=== PATIENT | male | born 1940 | race Caucasian/White ===

== ENCOUNTER 2018-04-21 21:40 | Inpatient (IN) | payer OTHER ==
[2018-04-21] MEDS: IODIXANOL LOCM 100 ML BTL (22:08)
[2018-04-21] MEDS: SOD CHLORIDE 0.9% 100 ML (22:08)
[2018-04-21 22:11] LABS: ABNORMAL IP MESSAGE 1; MEAN CORPUSCULAR HGB CONC 29.5 g/dl (32.0-37.0); NUCLEATED RED BLOOD CELLS% 0.6 /100WBC (0.0-0.0); PLATELET COUNT 274 10^3/UL (140-415); POSITIVE DIFF @See below; RED BLOOD COUNT 4.49 10^6/ul (4.70-6.10); RED CELL DISTRIBUTION WIDTH 14.2 % (11.5-14.5)
[2018-04-21 22:11] LABS: WHITE BLOOD COUNT 11.7 10^3/ul (4.8-10.8)
[2018-04-21 22:15] LABS: ADD MAN DIFF? YES
[2018-04-21 22:18] LABS: ALANINE AMINOTRANSFERASE 24 IU/L (13-69); ALBUMIN 4.4 g/dl (3.3-4.9); ALBUMIN/GLOBULIN RATIO 1.29; ALKALINE PHOSPHATASE 129 IU/L (42-121); ANION GAP 25 (8-16); ASPARTATE AMINO TRANSFERASE 30 IU/L (15-46); BILIRUBIN,INDIRECT 0.7 mg/dl (0-1.1); BILIRUBIN,TOTAL 0.7 mg/dl (0.2-1.3); BLOOD UREA NITROGEN 18 mg/dl (7-20); CARBON DIOXIDE 23 mmol/L (21-31); CHLORIDE 102 mmol/L (97-110); CREATININE 1.06 mg/dl (0.61-1.24); GLUCOSE 296 mg/dl (70-220); LIPASE 90 U/L (23-300); POTASSIUM 3.3 mmol/L (3.5-5.1); SODIUM 147 mmol/L (135-144); TOTAL PROTEIN 7.8 g/dl (6.1-8.1)
[2018-04-21 22:19] LABS: INR 1.22; PROTIME 15.6 Sec (11.9-14.9); PT RATIO 1.2
[2018-04-21 22:20] LABS: PARTIAL THROMBOPLASTIN TIME 35.5 Sec (25.0-35.0)
[2018-04-21] MEDS: LACTATED RINGER'S 1,000 ML IV (22:21)
[2018-04-21 22:30] LABS: TROPONIN-I 0.017 ng/ml (0.000-0.120)
[2018-04-21 22:38] LABS: BASOPHIL #M 0.1 10^3/ul (0.0-0.0); BASOPHILS % (M) 1 % (0-2); EOSINOPHILS % (M) 3 % (0-7); ERYTHROBLAST% (NRBC) (M) 1 % (0-0); LYMPHOCYTES #M 7.3 10^3/ul (0.8-2.9); LYMPHOCYTES % (M) 63 % (15-51); MONOCYTE #M 0.4 10^3/ul (0.3-0.9); MONOCYTES % (M) 4 % (0-11); PLATELET ESTIMATE NORMAL; SEGMENTED NEUTROPHILS (M) % 29 % (39-77); SMUDGE%M 23 % (0-0)
[2018-04-21] MEDS ORDERED: PROPOFOL 100 ML (22:46)
[2018-04-21] MEDS: PROPOFOL 100 ML IV (22:50)
[2018-04-21] MEDS: FUROSEMIDE 40 MG INJ IV (22:52)
[2018-04-21 22:59] LABS: Allen Test ACCEPTAB; Arterial COHb 0.2 % (0.0-3.0); Arterial Fraction of Oxyhgb 81.6 % (93.0-99.0); Arterial HCO3 23.4 mmol/L (22.0-26.0); Arterial MetHb 0.3 % (0.0-1.5); Arterial Total Hemglobin 13.3 g/dl (12.0-18.0); Arterial pCO2 52.7 mmhg (35-45); Blood Gas Low PEEP Setting 0 cmH2O; MODE VENT - AC; Site Left Radial
[2018-04-21] MEDS ORDERED: CA CHLORIDE 10% 10 ML SYRINGE (23:00)
[2018-04-21] MEDS ORDERED: NA BICARBONATE 8.4% 50 ML SYG (23:00)
[2018-04-21] MEDS ORDERED: AMIODARONE 150 MG INJ (23:00)
[2018-04-21 23:04] LABS: ADD UMIC NO; UR ASCORBIC ACID NEGATIVE (NEGATIVE); UR BILIRUBIN (Dip) NEGATIVE (NEGATIVE); UR BLOOD (Dip) NEGATIVE (NEGATIVE); UR CLARITY CLEAR (CLEAR); UR COLOR YELLOW (YELLOW); UR GLUCOSE (Dip) NEGATIVE (NEGATIVE); UR KETONES (Dip) NEGATIVE (NEGATIVE); UR LEUKOCYTE ESTERASE (Dip) NEGATIVE Leu/ul (NEGATIVE); UR NITRITE (Dip) NEGATIVE (NEGATIVE); UR SPECIFIC GRAVITY (Dip) 1.016 (1.003-1.030); UR TOTAL PROTEIN (Dip) NEGATIVE (NEGATIVE); UR UROBILINOGEN (Dip) 2+ mg/dL (NEGATIVE)
[2018-04-21] MEDS: metroNIDAZOLE 500 MG/NS (PMX) 100 ML IVPB (23:22)
[2018-04-21] MEDS: CEFTRIAXONE 1 GM/50 ML (PMX) 50 ML IVPB (23:22)
[2018-04-21] MEDS: LEVETIRACETAM 1000 MG (PMX) 100 ML IVPB (23:30)
[2018-04-21] MEDS: MIDAZOLAM (DRIP) 50 mg/50 mL 50 ML IV (23:32)
[2018-04-21] MEDS: LORAZEPAM 2 MG INJ IV (23:32)
[2018-04-22] MEDS: POTASSIUM CHLORIDE 50 ML IVPB ×6 (00:19→16:02)
[2018-04-22] MEDS: MAGNESIUM SULFATE 2 GM/50 ML 50 ML IVPB (00:19)
[2018-04-22] MEDS: LORAZEPAM 2 MG INJ IV ×2 (00:22→01:45)
[2018-04-22 01:15] LABS: TROPONIN-I 0.706 ng/ml (0.000-0.120)
[2018-04-22] MEDS: VECURONIUM 100 MG in D5W 100 ML IV ×3 (01:15→16:04)
[2018-04-22 01:40] LABS: AADO2 Arterial 585.2 mmHg (7.0-24.0); Allen Test ACCEPTAB; Arterial Base Excess 0.8 mmol/L (-3.0-3); Arterial Blood Gas Oxygen Sat 91.5 mmHG (95.0-100.0); Arterial COHb 0.2 % (0.0-3.0); Arterial HCO3 28.5 mmol/L (22.0-26.0); Arterial MetHb 0.3 % (0.0-1.5); Arterial pCO2 58.7 mmhg (35-45); MODE VENT - AC; Site Right Radial
[2018-04-22] MEDS: PROPOFOL 100 ML IV (01:50)
[2018-04-22] MEDS ORDERED: GLUCAGON 1 MG INJ IM (02:30)
[2018-04-22] MEDS ORDERED: GLUCOSE GEL 15 GRAM TUBE BUCCAL (02:30)
[2018-04-22] MEDS ORDERED: GLUCOSE GEL 15 GRAM TUBE PO ×2 (02:30)
[2018-04-22] MEDS ORDERED: ACETAMINOPHEN 650 MG SUPP PR (02:30)
[2018-04-22] MEDS ORDERED: NORepinephrine 8MG/250 ML (PMX 250 ML IV (02:30)
[2018-04-22] MEDS ORDERED: ONDANSETRON 4 MG INJ IV (02:30)
[2018-04-22] MEDS ORDERED: IPRATROPIUM (HFA) 12.9 GM INHALER INH (02:30)
[2018-04-22] MEDS ORDERED: PHENYLephrine 20MG IN 250 ML 250 ML IV (02:30)
[2018-04-22] MEDS ORDERED: DEXTROSE 50% 50 ML SYRINGE IV ×4 (02:30→06:30)
[2018-04-22] MEDS: POTASSIUM CHLORIDE 100 ML IVPB (02:30)
[2018-04-22] MEDS ORDERED: INSULIN ASPART [NOVOLOG] 3 ML PEN SC (05:00)
[2018-04-22 05:44] LABS: ADD MAN DIFF? NO
[2018-04-22 05:49] LABS: WHITE BLOOD COUNT 10.2 10^3/ul (4.8-10.8)
[2018-04-22 05:49] LABS: BASOPHILS % 0.2 % (0.0-2.0); EOSINOPHILS % 0.1 % (0.0-7.0); HEMATOCRIT 43.3 % (42.0-52.0); HEMOGLOBIN 13.7 g/dl (14.0-18.0); LYMPHOCYTES % 9.6 % (15.0-51.0); MEAN CORPUSCULAR HEMOGLOBIN 28.5 pg (29.0-33.0); MEAN CORPUSCULAR HGB CONC 31.6 g/dl (32.0-37.0); MONOCYTE # 0.6 10^3/ul (0.3-0.9); MONOCYTES % 6.2 % (0.0-11.0); NEUTROPHIL # 8.5 10^3/ul (1.6-7.5); NEUTROPHILS % 83.4 % (39.0-77.0); PLATELET COUNT 258 10^3/UL (140-415); POSITIVE DIFF @See below; RED BLOOD COUNT 4.81 10^6/ul (4.70-6.10); RED CELL DISTRIBUTION WIDTH 14.1 % (11.5-14.5)
[2018-04-22 06:10] LABS: ALANINE AMINOTRANSFERASE 58 IU/L (13-69); ALBUMIN 4.3 g/dl (3.3-4.9); ALBUMIN/GLOBULIN RATIO 1.34; ALKALINE PHOSPHATASE 126 IU/L (42-121); ANION GAP 21 (8-16); ASPARTATE AMINO TRANSFERASE 74 IU/L (15-46); BILIRUBIN,INDIRECT 1.2 mg/dl (0-1.1); BILIRUBIN,TOTAL 1.2 mg/dl (0.2-1.3); BLOOD UREA NITROGEN 24 mg/dl (7-20); CALCIUM 9.4 mg/dl (8.4-10.2); CARBON DIOXIDE 25 mmol/L (21-31); CHLORIDE 103 mmol/L (97-110); CREATININE 0.82 mg/dl (0.61-1.24); MAGNESIUM 2.1 mg/dl (1.7-2.5); PHOSPHORUS 3.5 mg/dl (2.5-4.9); POTASSIUM 3.7 mmol/L (3.5-5.1); SODIUM 145 mmol/L (135-144); TOTAL PROTEIN 7.5 g/dl (6.1-8.1)
[2018-04-22 06:15] LABS: GLUCOSE 416 mg/dl (70-220)
[2018-04-22] MEDS: ACCU-CHEK XX ×17 (07:00→23:03)
[2018-04-22] MEDS ORDERED: INSULIN GLARGINE [LANtus] 3 ML PEN SC (08:00)
[2018-04-22] MEDS: DEXTROSE 5%-0.45% NACL 1,000 ML IV ×2 (08:18→12:46)
[2018-04-22] MEDS: INSULIN HUMAN REGULAR 100 UNIT in SOD CHLORIDE 0.9% 99 ML IV ×2 (08:27→13:38)
[2018-04-22] MEDS: CEFEPIME 2GM/50 ML (PMX) 50 ML IVPB ×2 (10:21→20:59)
[2018-04-22 10:39] LABS: AADO2 Arterial 588.4 mmHg (7.0-24.0); Allen Test ACCEPTAB; Arterial Base Excess 0.4 mmol/L (-3.0-3); Arterial Blood Gas Oxygen Sat 98.5 mmHG (95.0-100.0); Arterial COHb 0.2 % (0.0-3.0); Arterial Fraction of Oxyhgb 98.1 % (93.0-99.0); Arterial HCO3 24.3 mmol/L (22.0-26.0); Arterial MetHb 0.2 % (0.0-1.5); Arterial Total Hemglobin 15.1 g/dl (12.0-18.0); MODE VENT - AC; Site Right Radial; Temperature 32.8 C
[2018-04-22] MEDS: MIDAZOLAM (DRIP) 50 mg/50 mL 50 ML IV ×3 (10:41→22:11)
[2018-04-22] MEDS: PANTOPRAZOLE 40 MG INJ IV (10:48)
[2018-04-22 10:51] LABS: B-TYPE NATRIURETIC PEPTIDE 2000 PG/ML (0-450)
[2018-04-22 12:37] LABS: ADD MAN DIFF? NO
[2018-04-22 12:49] LABS: WHITE BLOOD COUNT 6.1 10^3/ul (4.8-10.8)
[2018-04-22 12:49] LABS: EOSINOPHILS % 0.2 % (0.0-7.0); HEMATOCRIT 43.8 % (42.0-52.0); HEMOGLOBIN 13.7 g/dl (14.0-18.0); LYMPHOCYTES # 0.7 10^3/ul (0.8-2.9); LYMPHOCYTES % 11.1 % (15.0-51.0); MEAN CORPUSCULAR HEMOGLOBIN 28.2 pg (29.0-33.0); MEAN CORPUSCULAR HGB CONC 31.3 g/dl (32.0-37.0); MEAN CORPUSCULAR VOLUME 90.3 fl (82.0-101.0); MEAN PLATELET VOLUME 11.3 fl (7.4-10.4); MONOCYTE # 0.1 10^3/ul (0.3-0.9); NEUTROPHIL # 5.3 10^3/ul (1.6-7.5); NEUTROPHILS % 86.5 % (39.0-77.0); PLATELET COUNT 154 10^3/UL (140-415); POSITIVE DIFF @See below; RED BLOOD COUNT 4.85 10^6/ul (4.70-6.10); RED CELL DISTRIBUTION WIDTH 14.1 % (11.5-14.5)
[2018-04-22] MEDS: ARTIFICIAL TEARS 15 ML OPH BOTH EYES ×3 (12:56→21:00)
[2018-04-22] MEDS: OCULAR LUBRICANT 3.5 GM OPH OINT BOTH EYES ×3 (12:56→21:00)
[2018-04-22 12:59] LABS: LACTIC ACID 6.4 mmol/L (0.5-2.0)
[2018-04-22 12:59] LABS: ALANINE AMINOTRANSFERASE 45 IU/L (13-69); ALBUMIN 4.3 g/dl (3.3-4.9); ALKALINE PHOSPHATASE 92 IU/L (42-121); AMYLASE 294 U/L (11-123); ANION GAP 22 (8-16); ASPARTATE AMINO TRANSFERASE 61 IU/L (15-46); BILIRUBIN,INDIRECT 1.3 mg/dl (0-1.1); BILIRUBIN,TOTAL 1.3 mg/dl (0.2-1.3); BLOOD UREA NITROGEN 25 mg/dl (7-20); CALCIUM 9.4 mg/dl (8.4-10.2); CARBON DIOXIDE 24 mmol/L (21-31); CHLORIDE 105 mmol/L (97-110); GLUCOSE 299 mg/dl (70-220); LIPASE 17 U/L (23-300); PHOSPHORUS 2.8 mg/dl (2.5-4.9); POTASSIUM 3.2 mmol/L (3.5-5.1); SODIUM 148 mmol/L (135-144); TOTAL PROTEIN 7.6 g/dl (6.1-8.1)
[2018-04-22 13:15] LABS: INR 1.13; PARTIAL THROMBOPLASTIN TIME 27.9 Sec (25.0-35.0); PROTIME 14.7 Sec (11.9-14.9); PT RATIO 1.1
[2018-04-22 13:38] LABS: D-DIMER > 10000.00 ng/ml (<460)
[2018-04-22 14:49] LABS: Allen Test ACCEPTAB; Arterial Base Excess -2.4 mmol/L (-3.0-3); Arterial Blood Gas Oxygen Sat 99.3 mmHG (95.0-100.0); Arterial COHb 0.3 % (0.0-3.0); Arterial Fraction of Oxyhgb 98.8 % (93.0-99.0); Arterial HCO3 22.7 mmol/L (22.0-26.0); Arterial MetHb 0.2 % (0.0-1.5); Arterial Total Hemglobin 14.4 g/dl (12.0-18.0); MODE VENT - AC; Site Right Radial
[2018-04-22] MEDS: SOD CHLORIDE 0.9% 1,000 ML IV (16:46)
[2018-04-22 17:58] LABS: ADD MAN DIFF? NO
[2018-04-22 18:00] LABS: WHITE BLOOD COUNT 4.7 10^3/ul (4.8-10.8)
[2018-04-22 18:00] LABS: BASOPHILS % 0.2 % (0.0-2.0); HEMOGLOBIN 12.8 g/dl (14.0-18.0); LYMPHOCYTES # 0.6 10^3/ul (0.8-2.9); LYMPHOCYTES % 13.4 % (15.0-51.0); MEAN CORPUSCULAR HEMOGLOBIN 28.5 pg (29.0-33.0); MEAN CORPUSCULAR VOLUME 89.1 fl (82.0-101.0); MEAN PLATELET VOLUME 10.9 fl (7.4-10.4); MONOCYTE # 0.2 10^3/ul (0.3-0.9); MONOCYTES % 4.7 % (0.0-11.0); NEUTROPHIL # 3.8 10^3/ul (1.6-7.5); NEUTROPHILS % 81.3 % (39.0-77.0); PLATELET COUNT 172 10^3/UL (140-415); RED BLOOD COUNT 4.49 10^6/ul (4.70-6.10); RED CELL DISTRIBUTION WIDTH 13.8 % (11.5-14.5)
[2018-04-22 18:21] LABS: Allen Test ACCEPTAB; Arterial Base Excess 0.3 mmol/L (-3.0-3); Arterial COHb 0.1 % (0.0-3.0); Arterial Fraction of Oxyhgb 95.8 % (93.0-99.0); Arterial HCO3 24.5 mmol/L (22.0-26.0); Arterial MetHb 0.1 % (0.0-1.5); Arterial Total Hemglobin 14.1 g/dl (12.0-18.0); MODE VENT - AC; Site Right Radial
[2018-04-22 18:23] LABS: INR 1.15; PARTIAL THROMBOPLASTIN TIME 38.4 Sec (25.0-35.0); PROTIME 14.9 Sec (11.9-14.9); PT RATIO 1.2
[2018-04-22] MEDS: FUROSEMIDE 20 MG INJ IV (18:30)
[2018-04-22 18:33] LABS: CREATINE KINASE 413 IU/L (23-200)
[2018-04-22 18:35] LABS: ALANINE AMINOTRANSFERASE 46 IU/L (13-69); ALBUMIN 3.7 g/dl (3.3-4.9); ALBUMIN/GLOBULIN RATIO 1.27; ALKALINE PHOSPHATASE 75 IU/L (42-121); ANION GAP 13 (8-16); ASPARTATE AMINO TRANSFERASE 51 IU/L (15-46); BILIRUBIN,INDIRECT 1.2 mg/dl (0-1.1); BILIRUBIN,TOTAL 1.2 mg/dl (0.2-1.3); BLOOD UREA NITROGEN 29 mg/dl (7-20); CALCIUM 9.2 mg/dl (8.4-10.2); CARBON DIOXIDE 30 mmol/L (21-31); CHLORIDE 109 mmol/L (97-110); CREATININE 0.66 mg/dl (0.61-1.24); GLUCOSE 133 mg/dl (70-220); PHOSPHORUS 2.1 mg/dl (2.5-4.9); POTASSIUM 3.3 mmol/L (3.5-5.1); SODIUM 149 mmol/L (135-144); TOTAL PROTEIN 6.6 g/dl (6.1-8.1)
[2018-04-22 18:45] LABS: AMYLASE 459 U/L (11-123); LIPASE < 10 U/L (23-300)
[2018-04-22] MEDS: POTASSIUM PHOSPHATE 30 MM in SOD CHLORIDE 0.9% 250 ML IVPB (21:37)
[2018-04-23 00:11] LABS: AADO2 Arterial 348.5 mmHg (7.0-24.0); Allen Test ACCEPTAB; Arterial Base Excess -1.1 mmol/L (-3.0-3); Arterial COHb 0.3 % (0.0-3.0); Arterial Fraction of Oxyhgb 94.6 % (93.0-99.0); Arterial HCO3 22.4 mmol/L (22.0-26.0); Arterial MetHb 0.1 % (0.0-1.5); Arterial Total Hemglobin 13.5 g/dl (12.0-18.0); Arterial pCO2 27.8 mmhg (35-45); MODE VENT - AC; Site Right Radial; Temperature 32.5 C
[2018-04-23] MEDS: ACCU-CHEK XX ×25 (01:02→23:45)
[2018-04-23 01:19] LABS: ADD MAN DIFF? NO
[2018-04-23 01:20] LABS: WHITE BLOOD COUNT 7.4 10^3/ul (4.8-10.8)
[2018-04-23 01:20] LABS: BASOPHILS % 0.1 % (0.0-2.0); HEMATOCRIT 37.5 % (42.0-52.0); HEMOGLOBIN 12.1 g/dl (14.0-18.0); LYMPHOCYTES # 0.7 10^3/ul (0.8-2.9); LYMPHOCYTES % 9.7 % (15.0-51.0); MEAN CORPUSCULAR HEMOGLOBIN 28.6 pg (29.0-33.0); MEAN CORPUSCULAR HGB CONC 32.3 g/dl (32.0-37.0); MEAN CORPUSCULAR VOLUME 88.7 fl (82.0-101.0); MEAN PLATELET VOLUME 10.3 fl (7.4-10.4); MONOCYTE # 0.4 10^3/ul (0.3-0.9); NEUTROPHIL # 6.2 10^3/ul (1.6-7.5); NEUTROPHILS % 84.8 % (39.0-77.0); PLATELET COUNT 183 10^3/UL (140-415); RED BLOOD COUNT 4.23 10^6/ul (4.70-6.10); RED CELL DISTRIBUTION WIDTH 13.9 % (11.5-14.5)
[2018-04-23 01:37] LABS: CREATINE KINASE 314 IU/L (23-200)
[2018-04-23 01:38] LABS: LACTIC ACID 1.5 mmol/L (0.5-2.0)
[2018-04-23 01:40] LABS: ALANINE AMINOTRANSFERASE 46 IU/L (13-69); ALBUMIN 3.4 g/dl (3.3-4.9); ALBUMIN/GLOBULIN RATIO 1.13; ALKALINE PHOSPHATASE 74 IU/L (42-121); AMYLASE 519 U/L (11-123); ANION GAP 14 (8-16); ASPARTATE AMINO TRANSFERASE 41 IU/L (15-46); BILIRUBIN,INDIRECT 1.2 mg/dl (0-1.1); BILIRUBIN,TOTAL 1.2 mg/dl (0.2-1.3); BLOOD UREA NITROGEN 30 mg/dl (7-20); CALCIUM 8.7 mg/dl (8.4-10.2); CARBON DIOXIDE 28 mmol/L (21-31); CHLORIDE 110 mmol/L (97-110); GLUCOSE 137 mg/dl (70-220); PHOSPHORUS 5.3 mg/dl (2.5-4.9); SODIUM 148 mmol/L (135-144); TOTAL PROTEIN 6.4 g/dl (6.1-8.1)
[2018-04-23 01:41] LABS: INR 1.25; LIPASE < 10 U/L (23-300); PROTIME 15.9 Sec (11.9-14.9); PT RATIO 1.2
[2018-04-23 01:42] LABS: PARTIAL THROMBOPLASTIN TIME 38.9 Sec (25.0-35.0)
[2018-04-23 01:50] LABS: CK INDEX 10.5
[2018-04-23] MEDS ORDERED: ACCU-CHEK XX (02:00)
[2018-04-23 02:21] LABS: D-DIMER 6131.23 ng/ml (<460)
[2018-04-23] MEDS: MIDAZOLAM (DRIP) 50 mg/50 mL 50 ML IV ×4 (03:13→20:23)
[2018-04-23] MEDS: SOD CHLORIDE 0.9% 500 ML IV (04:29)
[2018-04-23] MEDS: SOD CHLORIDE 0.9% 1,000 ML IV (04:54)
[2018-04-23] MEDS: PANTOPRAZOLE 40 MG INJ IV (05:13)
[2018-04-23 05:51] LABS: ADD MAN DIFF? NO
[2018-04-23 05:54] LABS: BASOPHILS % 0.1 % (0.0-2.0); HEMOGLOBIN 11.8 g/dl (14.0-18.0); LYMPHOCYTES # 0.7 10^3/ul (0.8-2.9); LYMPHOCYTES % 10.7 % (15.0-51.0); MEAN CORPUSCULAR HGB CONC 32.8 g/dl (32.0-37.0); MEAN CORPUSCULAR VOLUME 88.5 fl (82.0-101.0); MEAN PLATELET VOLUME 10.8 fl (7.4-10.4); MONOCYTE # 0.4 10^3/ul (0.3-0.9); MONOCYTES % 5.7 % (0.0-11.0); NEUTROPHIL # 5.6 10^3/ul (1.6-7.5); NEUTROPHILS % 82.9 % (39.0-77.0); PLATELET COUNT 158 10^3/UL (140-415); POSITIVE DIFF @See below; RED BLOOD COUNT 4.07 10^6/ul (4.70-6.10); RED CELL DISTRIBUTION WIDTH 14.1 % (11.5-14.5)
[2018-04-23 05:54] LABS: WHITE BLOOD COUNT 6.7 10^3/ul (4.8-10.8)
[2018-04-23 06:00] LABS: AADO2 Arterial 468.7 mmHg (7.0-24.0); Allen Test ACCEPTAB; Arterial Base Excess -0.7 mmol/L (-3.0-3); Arterial COHb 0.3 % (0.0-3.0); Arterial Fraction of Oxyhgb 97.7 % (93.0-99.0); Arterial HCO3 22.2 mmol/L (22.0-26.0); Arterial MetHb 0 % (0.0-1.5); Arterial Total Hemglobin 12.7 g/dl (12.0-18.0); Arterial pCO2 25.7 mmhg (35-45); MODE VENT - AC; Site Right Radial; Temperature 32.4 C
[2018-04-23 06:14] LABS: ALANINE AMINOTRANSFERASE 46 IU/L (13-69); ALBUMIN 3.2 g/dl (3.3-4.9); ALBUMIN/GLOBULIN RATIO 1.06; ALKALINE PHOSPHATASE 69 IU/L (42-121); AMYLASE 480 U/L (11-123); ANION GAP 13 (8-16); ASPARTATE AMINO TRANSFERASE 36 IU/L (15-46); BILIRUBIN,INDIRECT 1.1 mg/dl (0-1.1); BILIRUBIN,TOTAL 1.1 mg/dl (0.2-1.3); BLOOD UREA NITROGEN 29 mg/dl (7-20); CALCIUM 8.4 mg/dl (8.4-10.2); CARBON DIOXIDE 27 mmol/L (21-31); CHLORIDE 113 mmol/L (97-110); CREATININE 0.65 mg/dl (0.61-1.24); GLUCOSE 99 mg/dl (70-220); LIPASE < 10 U/L (23-300); PHOSPHORUS 4.5 mg/dl (2.5-4.9); POTASSIUM 3.4 mmol/L (3.5-5.1); SODIUM 150 mmol/L (135-144); TOTAL PROTEIN 6.2 g/dl (6.1-8.1)
[2018-04-23 06:14] LABS: LACTIC ACID 1.3 mmol/L (0.5-2.0)
[2018-04-23 06:33] LABS: CHOLESTEROL 83 mg/dl (100-200)
[2018-04-23 06:33] LABS: CHOL/HDL RATIO 1.5 RATIO; HDL CHOLESTEROL 55 mg/dl (31-75); LDL CHOLESTEROL,CALCULATED 17 mg/dl; TRIGLYCERIDES 53 mg/dl (0-149)
[2018-04-23] MEDS: LORAZEPAM 2 MG INJ IV ×3 (06:39→21:14)
[2018-04-23 06:45] LABS: INR 1.27; PROTIME 16.1 Sec (11.9-14.9); PT RATIO 1.3
[2018-04-23 06:46] LABS: PARTIAL THROMBOPLASTIN TIME 38.7 Sec (25.0-35.0)
[2018-04-23 07:14] LABS: D-DIMER 6871.57 ng/ml (<460)
[2018-04-23] MEDS: DEXTROSE 5% 1,000 ML IV (07:51)
[2018-04-23] MEDS: LEVETIRACETAM 1000 MG (PMX) 100 ML IVPB ×2 (08:00→20:14)
[2018-04-23] MEDS: ASPIRIN 81 MG TAB PO ×2 (08:03→11:09)
[2018-04-23] MEDS: FUROSEMIDE 20 MG INJ IV (08:08)
[2018-04-23] MEDS: ARTIFICIAL TEARS 15 ML OPH BOTH EYES ×4 (08:09→20:38)
[2018-04-23] MEDS: CEFEPIME 2GM/50 ML (PMX) 50 ML IVPB ×2 (08:25→20:38)
[2018-04-23] MEDS: OCULAR LUBRICANT 3.5 GM OPH OINT BOTH EYES ×4 (08:26→21:00)
[2018-04-23] MEDS: POTASSIUM CHLORIDE 100 ML IVPB (09:01)
[2018-04-23] MEDS: INSULIN HUMAN REGULAR 100 UNIT in SOD CHLORIDE 0.9% 99 ML IV (09:29)
[2018-04-23 09:58] LABS: ADD UMIC YES; UR ASCORBIC ACID NEGATIVE (NEGATIVE); UR BACTERIA FEW /HPF (NONE SEEN); UR BILIRUBIN (Dip) NEGATIVE (NEGATIVE); UR BLOOD (Dip) 2+ mg/dL (NEGATIVE); UR CLARITY CLEAR (CLEAR); UR COLOR YELLOW (YELLOW); UR GLUCOSE (Dip) NEGATIVE (NEGATIVE); UR KETONES (Dip) TRACE mg/dL (NEGATIVE); UR LEUKOCYTE ESTERASE (Dip) 1+ Leu/ul (NEGATIVE); UR MUCUS FEW /HPF (NONE SEEN); UR NITRITE (Dip) NEGATIVE (NEGATIVE); UR RBC 29 /HPF (0-5); UR SPECIFIC GRAVITY (Dip) 1.019 (1.003-1.030); UR TOTAL PROTEIN (Dip) NEGATIVE (NEGATIVE); UR UROBILINOGEN (Dip) NEGATIVE (NEGATIVE); UR WBC 10 /HPF (0-5)
[2018-04-23 10:15] LABS: SODIUM,URINE RANDOM 58 mmol/L (30-90)
[2018-04-23] MEDS: BENAZEPRIL 5 MG TAB PO (11:09)
[2018-04-23] MEDS: ACETAMINOPHEN 650 MG SUPP PR (11:09)
[2018-04-23 12:07] LABS: AADO2 Arterial 465.5 mmHg (7.0-24.0); Allen Test ACCEPTAB; Arterial Base Excess -2.2 mmol/L (-3.0-3); Arterial Blood Gas Oxygen Sat 93.5 mmHG (95.0-100.0); Arterial COHb 0.3 % (0.0-3.0); Arterial Fraction of Oxyhgb 93.1 % (93.0-99.0); Arterial HCO3 24.7 mmol/L (22.0-26.0); Arterial MetHb 0.1 % (0.0-1.5); Arterial Total Hemglobin 13.1 g/dl (12.0-18.0); Arterial pCO2 44.3 mmhg (35-45); MODE VENT - AC; Site Right Radial; Temperature 33.9 C
[2018-04-23 12:19] LABS: AADO2 Arterial 335.8 mmHg (7.0-24.0); AADO2 Arterial 496.7 mmHg (7.0-24.0); Arterial pCO2 32.1 mmhg (35-45); Arterial pCO2 32.8 mmhg (35-45); Temperature 32.1 C
[2018-04-23 12:30] LABS: WHITE BLOOD COUNT 9.1 10^3/ul (4.8-10.8)
[2018-04-23 12:30] LABS: ABNORMAL IP MESSAGE 1; HEMATOCRIT 37.1 % (42.0-52.0); HEMOGLOBIN 11.8 g/dl (14.0-18.0); MEAN CORPUSCULAR HEMOGLOBIN 28.4 pg (29.0-33.0); MEAN CORPUSCULAR HGB CONC 31.8 g/dl (32.0-37.0); MEAN CORPUSCULAR VOLUME 89.2 fl (82.0-101.0); MEAN PLATELET VOLUME 10.6 fl (7.4-10.4); PLATELET COUNT 159 10^3/UL (140-415); POSITIVE DIFF @See below; RED BLOOD COUNT 4.16 10^6/ul (4.70-6.10); RED CELL DISTRIBUTION WIDTH 14.4 % (11.5-14.5)
[2018-04-23 12:32] LABS: ADD MAN DIFF? YES
[2018-04-23 12:43] LABS: LACTIC ACID 1.2 mmol/L (0.5-2.0)
[2018-04-23 12:44] LABS: ALANINE AMINOTRANSFERASE 41 IU/L (13-69); ALBUMIN 3.2 g/dl (3.3-4.9); ALKALINE PHOSPHATASE 73 IU/L (42-121); AMYLASE 464 U/L (11-123); ANION GAP 18 (8-16); ASPARTATE AMINO TRANSFERASE 35 IU/L (15-46); BILIRUBIN,INDIRECT 1.2 mg/dl (0-1.1); BILIRUBIN,TOTAL 1.2 mg/dl (0.2-1.3); BLOOD UREA NITROGEN 27 mg/dl (7-20); CALCIUM 8.2 mg/dl (8.4-10.2); CARBON DIOXIDE 28 mmol/L (21-31); CHLORIDE 110 mmol/L (97-110); CREATINE KINASE 217 IU/L (23-200); CREATININE 0.74 mg/dl (0.61-1.24); GLUCOSE 145 mg/dl (70-220); PHOSPHORUS 6.2 mg/dl (2.5-4.9); POTASSIUM 3.7 mmol/L (3.5-5.1); SODIUM 152 mmol/L (135-144); TOTAL PROTEIN 6.1 g/dl (6.1-8.1)
[2018-04-23 12:47] LABS: LIPASE < 10 U/L (23-300)
[2018-04-23 12:53] LABS: MAGNESIUM 2.1 mg/dl (1.7-2.5)
[2018-04-23 12:54] LABS: CK INDEX 10.9
[2018-04-23 12:58] LABS: INR 1.48; PROTIME 18.2 Sec (11.9-14.9); PT RATIO 1.4; TROPONIN-I 0.614 ng/ml (0.000-0.120)
[2018-04-23 12:59] LABS: PARTIAL THROMBOPLASTIN TIME 39.1 Sec (25.0-35.0)
[2018-04-23 13:12] LABS: BAND NEUTROPHILS #M 3.3 10^3/ul (0.0-0.6); BAND NEUTROPHILS % (M) 37 % (0-4); EOSINOPHILS % (M) 5 % (0-7); LYMPHOCYTES #M 0.3 10^3/ul (0.8-2.9); LYMPHOCYTES % (M) 4 % (15-51); MONOCYTE #M 0.1 10^3/ul (0.3-0.9); MONOCYTES % (M) 2 % (0-11); PLATELET ESTIMATE NORMAL; POIKILOCYTOSIS 1+ (0-0); SEGMENTED NEUTROPHILS (M) % 52 % (39-77); SMUDGE%M 1 % (0-0)
[2018-04-23 13:21] LABS: D-DIMER 7115.95 ng/ml (<460)
[2018-04-23] MEDS ORDERED: VANCOMYCIN IV PER PHARMACY XX (18:00)
[2018-04-23 18:31] LABS: AADO2 Arterial 441.9 mmHg (7.0-24.0); Allen Test ACCEPTAB; Arterial Base Excess -0.9 mmol/L (-3.0-3); Arterial Blood Gas Oxygen Sat 91.8 mmHG (95.0-100.0); Arterial COHb 0.3 % (0.0-3.0); Arterial Fraction of Oxyhgb 91.3 % (93.0-99.0); Arterial HCO3 27.1 mmol/L (22.0-26.0); Arterial MetHb 0.2 % (0.0-1.5); Arterial Total Hemglobin 13.6 g/dl (12.0-18.0); Arterial pCO2 58.4 mmhg (35-45); MODE TRACH COLLAR; Site Right Radial; Temperature 36.3 C
[2018-04-23 19:38] LABS: ADD MAN DIFF? NO
[2018-04-23 19:40] LABS: WHITE BLOOD COUNT 12.7 10^3/ul (4.8-10.8)
[2018-04-23 19:40] LABS: HEMATOCRIT 38.5 % (42.0-52.0); HEMOGLOBIN 12.2 g/dl (14.0-18.0); MEAN CORPUSCULAR HEMOGLOBIN 28.6 pg (29.0-33.0); MEAN CORPUSCULAR HGB CONC 31.7 g/dl (32.0-37.0); MEAN CORPUSCULAR VOLUME 90.4 fl (82.0-101.0); MEAN PLATELET VOLUME 10.8 fl (7.4-10.4); PLATELET COUNT 194 10^3/UL (140-415); POSITIVE DIFF @See below; RED BLOOD COUNT 4.26 10^6/ul (4.70-6.10); RED CELL DISTRIBUTION WIDTH 14.6 % (11.5-14.5)
[2018-04-23] MEDS: VANCOMYCIN 2 GM in SOD CHLORIDE 0.9% 500 ML IVPB (19:47)
[2018-04-23 19:59] LABS: INR 1.55; PROTIME 18.9 Sec (11.9-14.9); PT RATIO 1.5
[2018-04-23 19:59] LABS: LACTIC ACID 1.3 mmol/L (0.5-2.0)
[2018-04-23 20:00] LABS: MAGNESIUM 1.8 mg/dl (1.7-2.5)
[2018-04-23 20:00] LABS: PARTIAL THROMBOPLASTIN TIME 41.1 Sec (25.0-35.0)
[2018-04-23 20:01] LABS: ALANINE AMINOTRANSFERASE 41 IU/L (13-69); ALBUMIN 3.5 g/dl (3.3-4.9); ALBUMIN/GLOBULIN RATIO 1.06; ALKALINE PHOSPHATASE 77 IU/L (42-121); AMYLASE 452 U/L (11-123); ANION GAP 17 (8-16); ASPARTATE AMINO TRANSFERASE 34 IU/L (15-46); BLOOD UREA NITROGEN 29 mg/dl (7-20); CALCIUM 8.2 mg/dl (8.4-10.2); CARBON DIOXIDE 28 mmol/L (21-31); CHLORIDE 109 mmol/L (97-110); CREATININE 0.88 mg/dl (0.61-1.24); GLUCOSE 147 mg/dl (70-220); LIPASE 14 U/L (23-300); PHOSPHORUS 6.6 mg/dl (2.5-4.9); POTASSIUM 4.2 mmol/L (3.5-5.1); SODIUM 150 mmol/L (135-144); TOTAL PROTEIN 6.8 g/dl (6.1-8.1)
[2018-04-23 20:19] LABS: D-DIMER 7324.77 ng/ml (<460)
[2018-04-23 20:39] LABS: ANISOCYTOSIS 1+ (0-0); BAND NEUTROPHILS #M 2.1 10^3/ul (0.0-0.6); BAND NEUTROPHILS % (M) 17 % (0-4); EOSINOPHILS % (M) 2 % (0-7); GIANT THROMBO% (M) 1 % (0-0); LYMPHOCYTES #M 1.2 10^3/ul (0.8-2.9); LYMPHOCYTES % (M) 10 % (15-51); PLATELET ESTIMATE NORMAL; POIKILOCYTOSIS 1+ (0-0); POLYCHROMASIA 1+ (0-0); SEG NEUT #M 9.3 10^3/ul (1.6-7.5); SEGMENTED NEUTROPHILS (M) % 71 % (39-77)
[2018-04-23] MEDS: MAGNESIUM SULFATE 2 GM/50 ML 50 ML IVPB (23:03)
[2018-04-23] MEDS: PHENYTOIN 1,500 MG in SOD CHLORIDE 0.9% 150 ML IV (23:41)
[2018-04-24] MEDS: ACCU-CHEK XX ×23 (01:08→23:29)
[2018-04-24] MEDS: MIDAZOLAM (DRIP) 50 mg/50 mL 50 ML IV ×4 (01:39→18:07)
[2018-04-24 05:46] LABS: ADD MAN DIFF? NO
[2018-04-24 05:48] LABS: BASOPHILS % 0.1 % (0.0-2.0); HEMATOCRIT 35.1 % (42.0-52.0); HEMOGLOBIN 10.9 g/dl (14.0-18.0); LYMPHOCYTES # 0.8 10^3/ul (0.8-2.9); LYMPHOCYTES % 6.4 % (15.0-51.0); MEAN CORPUSCULAR HEMOGLOBIN 28.3 pg (29.0-33.0); MEAN CORPUSCULAR HGB CONC 31.1 g/dl (32.0-37.0); MEAN CORPUSCULAR VOLUME 91.2 fl (82.0-101.0); MEAN PLATELET VOLUME 11.3 fl (7.4-10.4); MONOCYTE # 0.5 10^3/ul (0.3-0.9); MONOCYTES % 3.7 % (0.0-11.0); NEUTROPHIL # 10.9 10^3/ul (1.6-7.5); NEUTROPHILS % 88.7 % (39.0-77.0); PLATELET COUNT 178 10^3/UL (140-415); POSITIVE DIFF @See below; RED BLOOD COUNT 3.85 10^6/ul (4.70-6.10)
[2018-04-24 05:48] LABS: WHITE BLOOD COUNT 12.3 10^3/ul (4.8-10.8)
[2018-04-24] MEDS: LORAZEPAM 2 MG INJ IV ×3 (06:23→11:45)
[2018-04-24] MEDS: DEXTROSE 5% 1,000 ML IV (06:23)
[2018-04-24] MEDS: PANTOPRAZOLE 40 MG INJ IV (06:23)
[2018-04-24 06:27] LABS: CK INDEX 4.9; CREATINE KINASE 164 IU/L (23-200)
[2018-04-24 06:28] LABS: ANION GAP 5 (8-16); BLOOD UREA NITROGEN 35 mg/dl (7-20); CALCIUM 7.9 mg/dl (8.4-10.2); CARBON DIOXIDE 30 mmol/L (21-31); CHLORIDE 111 mmol/L (97-110); GLUCOSE 151 mg/dl (70-220); MAGNESIUM 2.7 mg/dl (1.7-2.5); PHOSPHORUS 5.1 mg/dl (2.5-4.9); POTASSIUM 4.2 mmol/L (3.5-5.1); SODIUM 142 mmol/L (135-144)
[2018-04-24 06:29] LABS: CK-MB 7.96 ng/ml (0.0-2.4); TROPONIN-I 0.762 ng/ml (0.000-0.120)
[2018-04-24] MEDS: ASPIRIN 81 MG TAB PO (08:25)
[2018-04-24] MEDS: LEVETIRACETAM 1000 MG (PMX) 100 ML IVPB ×2 (08:25→23:05)
[2018-04-24] MEDS: BENAZEPRIL 5 MG TAB PO (08:26)
[2018-04-24] MEDS: OCULAR LUBRICANT 3.5 GM OPH OINT BOTH EYES ×4 (08:26→21:00)
[2018-04-24] MEDS: ARTIFICIAL TEARS 15 ML OPH BOTH EYES ×4 (08:26→22:15)
[2018-04-24] MEDS: FUROSEMIDE 20 MG INJ IV (08:32)
[2018-04-24 08:38] LABS: ANISOCYTOSIS 1+ (0-0); BAND NEUTROPHILS #M 3.4 10^3/ul (0.0-0.6); BAND NEUTROPHILS % (M) 28 % (0-4); LYMPHOCYTES #M 0.2 10^3/ul (0.8-2.9); LYMPHOCYTES % (M) 2 % (15-51); METAMYELOCYTES #M 0.1 10^3/ul (0.0-0.0); METAMYELOCYTES %M 1 % (0-0); MICROCYTOSIS 1+ (0-0); PLATELET ESTIMATE NORMAL; POIKILOCYTOSIS 1+ (0-0); POLYCHROMASIA 3+ (0-0); SEG NEUT #M 8.9 10^3/ul (1.6-7.5); SEGMENTED NEUTROPHILS (M) % 69 % (39-77); SMUDGE%M 1 % (0-0)
[2018-04-24] MEDS: PHENYTOIN 1,000 MG in SOD CHLORIDE 0.9% 100 ML IV (09:22)
[2018-04-24] MEDS: VANCOMYCIN 1 GM 250 ML IVPB (10:05)
[2018-04-24 10:20] LABS: PHENYTOIN (DILANTIN) 8.6 ug/ml (10.0-20.0)
[2018-04-24 10:28] LABS: AADO2 Arterial 608.1 mmHg (7.0-24.0); Allen Test ACCEPTAB; Arterial Base Excess 0 mmol/L (-3.0-3); Arterial Blood Gas Oxygen Sat 90.7 mmHG (95.0-100.0); Arterial COHb 0.3 % (0.0-3.0); Arterial Fraction of Oxyhgb 90.2 % (93.0-99.0); Arterial HCO3 25.3 mmol/L (22.0-26.0); Arterial MetHb 0.2 % (0.0-1.5); Arterial Total Hemglobin 11.8 g/dl (12.0-18.0); Arterial pCO2 43.4 mmhg (35-45); MODE VENT - AC; Site Right Radial
[2018-04-24] MEDS ORDERED: LEVETIRACETAM 1500 MG (PMX) 100 ML IVPB (11:00)
[2018-04-24] MEDS: LEVETIRACETAM 500 MG (PMX) 100 ML IVPB (11:27)
[2018-04-24] MEDS ORDERED: CEFTRIAXONE 1 GM/50 ML (PMX) 50 ML IVPB (12:00)
[2018-04-24] MEDS: FENTAnyl (DRIP) 1000 mcg/100mL 100 ML IV ×2 (12:39→23:06)
[2018-04-24] MEDS: CEFEPIME 1GM/50 ML (PMX) 50 ML IVPB ×2 (12:46→22:14)
[2018-04-24 14:38] LABS: AADO2 Venous 480.6 mmHg; MODE VENT - AC; MetHgb Venous 0.3 %; Sample Type Blood venous; Site OTHER; Venous COHb 0.3 %; Venous Oxygen Sat 68.4 mmHG (55.0-75.0); Venous Total Hemglobin 12.6 g/dl
[2018-04-24] MEDS ORDERED: DOBUTamine/D5W 1 MG/ML DRIP 250 ML IV (15:00)
[2018-04-24] MEDS: PHENYTOIN 100 MG INJ IV ×2 (15:50→22:15)
[2018-04-24] MEDS ORDERED: PHENYTOIN IV (16:00)
[2018-04-24] MEDS ORDERED: SOD CHLORIDE 0.9% IV (16:00)
[2018-04-24] MEDS ORDERED: LEVETIRACETAM 500 MG (PMX) 100 ML IVPB (21:00)
[2018-04-25] MEDS: ACCU-CHEK XX ×24 (00:05→23:22)
[2018-04-25] MEDS: MIDAZOLAM (DRIP) 50 mg/50 mL 50 ML IV ×4 (00:05→21:12)
[2018-04-25] MEDS ORDERED: NORepinephrine 8MG/250 ML (PMX 250 ML (03:45)
[2018-04-25] MEDS: ALBUMIN HUMAN 25% 100 ML IV ×2 (04:55→13:12)
[2018-04-25] MEDS: DEXTROSE 5% 1,000 ML IV ×2 (05:09)
[2018-04-25 05:33] LABS: ADD MAN DIFF? NO
[2018-04-25 05:38] LABS: ABNORMAL IP MESSAGE 1; BASOPHILS % 0.3 % (0.0-2.0); HEMOGLOBIN 11.7 g/dl (14.0-18.0); LYMPHOCYTES # 0.8 10^3/ul (0.8-2.9); MEAN CORPUSCULAR HEMOGLOBIN 28.3 pg (29.0-33.0); MEAN CORPUSCULAR HGB CONC 30.8 g/dl (32.0-37.0); MEAN CORPUSCULAR VOLUME 91.8 fl (82.0-101.0); MONOCYTE # 0.5 10^3/ul (0.3-0.9); MONOCYTES % 4.1 % (0.0-11.0); NEUTROPHIL # 9.6 10^3/ul (1.6-7.5); NEUTROPHILS % 88.5 % (39.0-77.0); PLATELET COUNT 193 10^3/UL (140-415); POSITIVE DIFF @See below; RED BLOOD COUNT 4.14 10^6/ul (4.70-6.10); RED CELL DISTRIBUTION WIDTH 15.1 % (11.5-14.5)
[2018-04-25 05:38] LABS: WHITE BLOOD COUNT 10.9 10^3/ul (4.8-10.8)
[2018-04-25 05:40] LABS: AADO2 Arterial 607.9 mmHg (7.0-24.0); Allen Test ACCEPTAB; Arterial Base Excess -0.7 mmol/L (-3.0-3); Arterial Blood Gas Oxygen Sat 87.8 mmHG (95.0-100.0); Arterial COHb 0.3 % (0.0-3.0); Arterial Fraction of Oxyhgb 87.4 % (93.0-99.0); Arterial HCO3 25.6 mmol/L (22.0-26.0); Arterial MetHb 0.1 % (0.0-1.5); Arterial Total Hemglobin 12.2 g/dl (12.0-18.0); Arterial pCO2 49.1 mmhg (35-45); MODE VENT - AC; Site Left Radial
[2018-04-25] MEDS: PANTOPRAZOLE 40 MG INJ IV (05:56)
[2018-04-25] MEDS: PHENYTOIN 100 MG INJ IV ×3 (05:56→22:43)
[2018-04-25 06:13] LABS: LACTIC ACID 1.8 mmol/L (0.5-2.0)
[2018-04-25 06:14] LABS: ANION GAP 5 (8-16); BLOOD UREA NITROGEN 26 mg/dl (7-20); CALCIUM 8.1 mg/dl (8.4-10.2); CARBON DIOXIDE 30 mmol/L (21-31); CHLORIDE 109 mmol/L (97-110); CREATININE 0.82 mg/dl (0.61-1.24); GLUCOSE 134 mg/dl (70-220); POTASSIUM 3.8 mmol/L (3.5-5.1); SODIUM 140 mmol/L (135-144)
[2018-04-25] MEDS: INSULIN HUMAN REGULAR 100 UNIT in SOD CHLORIDE 0.9% 99 ML IV (06:43)
[2018-04-25] MEDS: FENTAnyl (DRIP) 1000 mcg/100mL 100 ML IV ×2 (06:44→19:33)
[2018-04-25] MEDS: BENAZEPRIL 5 MG TAB PO (09:00)
[2018-04-25] MEDS: CEFEPIME 1GM/50 ML (PMX) 50 ML IVPB ×2 (09:05→20:31)
[2018-04-25] MEDS: LEVETIRACETAM 1000 MG (PMX) 100 ML IVPB ×2 (09:05→20:31)
[2018-04-25] MEDS: ASPIRIN 81 MG TAB PO (09:06)
[2018-04-25] MEDS: ARTIFICIAL TEARS 15 ML OPH BOTH EYES ×4 (09:08→20:31)
[2018-04-25] MEDS: OCULAR LUBRICANT 3.5 GM OPH OINT BOTH EYES ×4 (09:09→21:00)
[2018-04-25] MEDS: FUROSEMIDE 20 MG INJ IV (09:39)
[2018-04-25 09:51] LABS: ANISOCYTOSIS 1+ (0-0); BAND NEUTROPHILS % (M) 19 % (0-4); ERYTHROBLAST% (NRBC) (M) 2 % (0-0); GIANT THROMBO% (M) 1 % (0-0); LYMPHOCYTES #M 0.5 10^3/ul (0.8-2.9); LYMPHOCYTES % (M) 5 % (15-51); MONOCYTE #M 0.7 10^3/ul (0.3-0.9); MONOCYTES % (M) 7 % (0-11); MYELOCYTES #M 0.1 10^3/ul (0.0-0.0); MYELOCYTES % (M) 1 % (0-0); POLYCHROMASIA 3+ (0-0); SEG NEUT #M 7.6 10^3/ul (1.6-7.5); SEGMENTED NEUTROPHILS (M) % 68 % (39-77); SMUDGE%M 3 % (0-0)
[2018-04-25 09:52] LABS: PLATELET ESTIMATE NORMAL
[2018-04-26] MEDS: ACCU-CHEK XX ×24 (01:22→23:00)
[2018-04-26 05:22] LABS: Allen Test ACCEPTAB; Arterial Base Excess -0.8 mmol/L (-3.0-3); Arterial COHb 0.3 % (0.0-3.0); Arterial Fraction of Oxyhgb 98.4 % (93.0-99.0); Arterial HCO3 26.2 mmol/L (22.0-26.0); Arterial MetHb 0.3 % (0.0-1.5); Arterial Total Hemglobin 10.6 g/dl (12.0-18.0); Arterial pCO2 54.9 mmhg (35-45); MODE VENT - AC; Site Right Radial
[2018-04-26 05:55] LABS: WHITE BLOOD COUNT 8.8 10^3/ul (4.8-10.8)
[2018-04-26 05:55] LABS: HEMATOCRIT 29.2 % (42.0-52.0); HEMOGLOBIN 8.9 g/dl (14.0-18.0); MEAN CORPUSCULAR HEMOGLOBIN 28.8 pg (29.0-33.0); MEAN CORPUSCULAR HGB CONC 30.5 g/dl (32.0-37.0); MEAN CORPUSCULAR VOLUME 94.5 fl (82.0-101.0); MEAN PLATELET VOLUME 11.3 fl (7.4-10.4); PLATELET COUNT 132 10^3/UL (140-415); POSITIVE DIFF @See below; RED BLOOD COUNT 3.09 10^6/ul (4.70-6.10); RED CELL DISTRIBUTION WIDTH 15.1 % (11.5-14.5)
[2018-04-26 05:59] LABS: LACTIC ACID 1.1 mmol/L (0.5-2.0)
[2018-04-26] MEDS: PANTOPRAZOLE 40 MG INJ IV (05:59)
[2018-04-26 06:00] LABS: ADD MAN DIFF? YES
[2018-04-26] MEDS: PHENYTOIN 100 MG INJ IV ×3 (06:00→21:04)
[2018-04-26 06:14] LABS: TROPONIN-I 0.746 ng/ml (0.000-0.120)
[2018-04-26 06:18] LABS: BLOOD UREA NITROGEN 44 mg/dl (7-20); CALCIUM 8.1 mg/dl (8.4-10.2); CARBON DIOXIDE 29 mmol/L (21-31); CHLORIDE 105 mmol/L (97-110); CREATININE 1.66 mg/dl (0.61-1.24); GLUCOSE 142 mg/dl (70-220); SODIUM 140 mmol/L (135-144)
[2018-04-26] MEDS: FENTAnyl (DRIP) 1000 mcg/100mL 100 ML IV (06:36)
[2018-04-26] MEDS: MIDAZOLAM (DRIP) 50 mg/50 mL 50 ML IV ×3 (06:37→20:24)
[2018-04-26 06:50] LABS: ANION GAP 10 (8-16)
[2018-04-26 06:51] LABS: POTASSIUM 4.2 mmol/L (3.5-5.1)
[2018-04-26 07:41] LABS: BAND NEUTROPHILS #M 0.9 10^3/ul (0.0-0.6); BAND NEUTROPHILS % (M) 11 % (0-4); EOSINOPHILS % (M) 1 % (0-7); GIANT THROMBO% (M) 1 % (0-0); LYMPHOCYTES #M 1.4 10^3/ul (0.8-2.9); LYMPHOCYTES % (M) 16 % (15-51); MONOCYTE #M 0.5 10^3/ul (0.3-0.9); MONOCYTES % (M) 6 % (0-11); PLATELET ESTIMATE DECREASED; REACTIVE LYMPHOCYTES #M 0.1 10^3/ul (0.0-0.0); REACTIVE LYMPHOCYTES% (M) 2 % (0-0); SEG NEUT #M 5.7 10^3/ul (1.6-7.5); SEGMENTED NEUTROPHILS (M) % 64 % (39-77); SMUDGE%M 5 % (0-0)
[2018-04-26] MEDS: FUROSEMIDE 20 MG INJ IV (09:00)
[2018-04-26] MEDS: OCULAR LUBRICANT 3.5 GM OPH OINT BOTH EYES ×4 (09:10→21:00)
[2018-04-26] MEDS: ARTIFICIAL TEARS 15 ML OPH BOTH EYES ×4 (09:11→21:09)
[2018-04-26] MEDS: ASPIRIN 81 MG TAB PO (09:11)
[2018-04-26] MEDS: LEVETIRACETAM 1000 MG (PMX) 100 ML IVPB (09:12)
[2018-04-26] MEDS: DEXTROSE 5% 1,000 ML IV ×2 (09:16→09:17)
[2018-04-26] MEDS: CEFEPIME 1GM/50 ML (PMX) 50 ML IVPB ×2 (09:23→21:04)
[2018-04-26] MEDS: LORAZEPAM 2 MG INJ IV ×2 (13:44→13:55)
[2018-04-26] MEDS: PROPOFOL 100 ML IV ×2 (14:31→20:23)
[2018-04-26] MEDS: LEVETIRACETAM 1500 MG (PMX) 100 ML IVPB ×2 (14:38→21:04)
[2018-04-26 14:51] LABS: PHENYTOIN (DILANTIN) 18.9 ug/ml (10.0-20.0)
[2018-04-26] MEDS: DOXYCYCLINE 100 MG in SOD CHLORIDE 0.9% 250 ML IVPB ×2 (14:53→23:32)
[2018-04-26 16:41] LABS: CREATININE, RANDOM URINE 87 mg/dL (20-370); MICROALBUMIN 2.2 mg/dL; MICROALBUMIN/CREATININE RATIO 25 (<30)
[2018-04-27] MEDS: ACCU-CHEK XX ×24 (01:00→23:02)
[2018-04-27] MEDS: ACETAMINOPHEN 650 MG SUPP PR (01:27)
[2018-04-27 04:44] LABS: ADD UMIC YES; UR ASCORBIC ACID 40 mg/dL (NEGATIVE); UR BILIRUBIN (Dip) NEGATIVE (NEGATIVE); UR BLOOD (Dip) NEGATIVE (NEGATIVE); UR BUDDING YEAST FEW /HPF (NONE SEEN); UR CLARITY CLOUDY (CLEAR); UR COLOR YELLOW (YELLOW); UR GLUCOSE (Dip) NEGATIVE (NEGATIVE); UR KETONES (Dip) NEGATIVE (NEGATIVE); UR LEUKOCYTE ESTERASE (Dip) NEGATIVE Leu/ul (NEGATIVE); UR NITRITE (Dip) NEGATIVE (NEGATIVE); UR RBC 1 /HPF (0-5); UR SPECIFIC GRAVITY (Dip) 1.018 (1.003-1.030); UR TOTAL PROTEIN (Dip) 1+ mg/dl (NEGATIVE); UR UROBILINOGEN (Dip) NEGATIVE (NEGATIVE); UR WBC 4 /HPF (0-5)
[2018-04-27 05:04] LABS: ADD MAN DIFF? NO
[2018-04-27 05:08] LABS: WHITE BLOOD COUNT 11.7 10^3/ul (4.8-10.8)
[2018-04-27 05:08] LABS: BASOPHILS % 0.3 % (0.0-2.0); EOSINOPHILS # 0.1 10^3/ul (0.0-0.5); EOSINOPHILS % 0.8 % (0.0-7.0); HEMATOCRIT 28.5 % (42.0-52.0); HEMOGLOBIN 8.7 g/dl (14.0-18.0); LYMPHOCYTES # 1.2 10^3/ul (0.8-2.9); LYMPHOCYTES % 10.4 % (15.0-51.0); MEAN CORPUSCULAR HEMOGLOBIN 28.5 pg (29.0-33.0); MEAN CORPUSCULAR HGB CONC 30.5 g/dl (32.0-37.0); MEAN CORPUSCULAR VOLUME 93.4 fl (82.0-101.0); MONOCYTE # 1.4 10^3/ul (0.3-0.9); MONOCYTES % 11.6 % (0.0-11.0); NEUTROPHIL # 8.8 10^3/ul (1.6-7.5); NEUTROPHILS % 75.4 % (39.0-77.0); PLATELET COUNT 134 10^3/UL (140-415); RED BLOOD COUNT 3.05 10^6/ul (4.70-6.10); RED CELL DISTRIBUTION WIDTH 15.2 % (11.5-14.5)
[2018-04-27 05:28] LABS: ANION GAP 9 (8-16); BLOOD UREA NITROGEN 60 mg/dl (7-20); CALCIUM 8.2 mg/dl (8.4-10.2); CARBON DIOXIDE 29 mmol/L (21-31); CHLORIDE 105 mmol/L (97-110); CREATININE 1.47 mg/dl (0.61-1.24); GLUCOSE 153 mg/dl (70-220); MAGNESIUM 2.8 mg/dl (1.7-2.5); PHOSPHORUS 3.9 mg/dl (2.5-4.9); POTASSIUM 4.3 mmol/L (3.5-5.1); SODIUM 139 mmol/L (135-144)
[2018-04-27] MEDS: PROPOFOL 100 ML IV ×3 (05:35→16:52)
[2018-04-27] MEDS: MIDAZOLAM (DRIP) 50 mg/50 mL 50 ML IV ×3 (05:37→21:22)
[2018-04-27] MEDS: INSULIN HUMAN REGULAR 100 UNIT in SOD CHLORIDE 0.9% 99 ML IV (05:37)
[2018-04-27] MEDS: PANTOPRAZOLE 40 MG INJ IV (05:38)
[2018-04-27] MEDS: PHENYTOIN 100 MG INJ IV ×3 (05:38→22:21)
[2018-04-27 05:54] LABS: PHENYTOIN (DILANTIN) 14.8 ug/ml (10.0-20.0)
[2018-04-27] MEDS: NACL 3% FOR INHALATION 15 ML NEBU NEB (07:00)
[2018-04-27] MEDS: ARTIFICIAL TEARS 15 ML OPH BOTH EYES ×4 (08:02→20:50)
[2018-04-27] MEDS: SOD CHLORIDE 0.9% 1,000 ML IV (08:02)
[2018-04-27] MEDS: OCULAR LUBRICANT 3.5 GM OPH OINT BOTH EYES ×4 (08:02→23:02)
[2018-04-27] MEDS: ASPIRIN 81 MG TAB PO (08:03)
[2018-04-27] MEDS: CEFEPIME 1GM/50 ML (PMX) 50 ML IVPB ×2 (08:04→20:50)
[2018-04-27] MEDS: LEVETIRACETAM 1500 MG (PMX) 100 ML IVPB ×2 (08:51→20:50)
[2018-04-27] MEDS: DOXYCYCLINE 100 MG in SOD CHLORIDE 0.9% 250 ML IVPB ×2 (09:55→20:50)
[2018-04-27] MEDS: LORAZEPAM 2 MG INJ IV ×3 (14:10→22:09)
[2018-04-27] MEDS: FLUCONAZOLE 100 MG TAB PO (14:25)
[2018-04-27] MEDS: FUROSEMIDE 20 MG INJ IV (17:00)
[2018-04-28] MEDS: PROPOFOL 100 ML IV ×4 (01:30→18:11)
[2018-04-28] MEDS: ACCU-CHEK XX ×21 (01:30→20:09)
[2018-04-28] MEDS: MIDAZOLAM (DRIP) 50 mg/50 mL 50 ML IV ×3 (03:12→19:41)
[2018-04-28] MEDS: FUROSEMIDE 20 MG INJ IV (05:37)
[2018-04-28] MEDS: PANTOPRAZOLE 40 MG INJ IV (05:37)
[2018-04-28] MEDS: PHENYTOIN 100 MG INJ IV ×3 (05:37→22:05)
[2018-04-28] MEDS: SOD CHLORIDE 0.9% 1,000 ML IV (05:37)
[2018-04-28 06:13] LABS: ADD MAN DIFF? NO
[2018-04-28 06:16] LABS: WHITE BLOOD COUNT 9.6 10^3/ul (4.8-10.8)
[2018-04-28 06:16] LABS: BASOPHILS % 0.2 % (0.0-2.0); EOSINOPHILS # 0.2 10^3/ul (0.0-0.5); HEMATOCRIT 29.3 % (42.0-52.0); HEMOGLOBIN 8.9 g/dl (14.0-18.0); LYMPHOCYTES # 0.8 10^3/ul (0.8-2.9); LYMPHOCYTES % 7.9 % (15.0-51.0); MEAN CORPUSCULAR HEMOGLOBIN 28.6 pg (29.0-33.0); MEAN CORPUSCULAR HGB CONC 30.4 g/dl (32.0-37.0); MEAN CORPUSCULAR VOLUME 94.2 fl (82.0-101.0); MONOCYTE # 1.1 10^3/ul (0.3-0.9); MONOCYTES % 11.6 % (0.0-11.0); NEUTROPHIL # 7.4 10^3/ul (1.6-7.5); NEUTROPHILS % 76.8 % (39.0-77.0); PLATELET COUNT 116 10^3/UL (140-415); POSITIVE DIFF @See below; RED BLOOD COUNT 3.11 10^6/ul (4.70-6.10); RED CELL DISTRIBUTION WIDTH 15.4 % (11.5-14.5)
[2018-04-28 06:43] LABS: ANION GAP 9 (8-16); BLOOD UREA NITROGEN 52 mg/dl (7-20); CARBON DIOXIDE 29 mmol/L (21-31); CHLORIDE 106 mmol/L (97-110); CREATININE 1.19 mg/dl (0.61-1.24); GLUCOSE 144 mg/dl (70-220); MAGNESIUM 2.9 mg/dl (1.7-2.5); PHOSPHORUS 3.4 mg/dl (2.5-4.9); POTASSIUM 4.1 mmol/L (3.5-5.1); SODIUM 140 mmol/L (135-144)
[2018-04-28] MEDS: ACETAMINOPHEN 650MG/20.3ML CUP PO ×2 (08:44→18:03)
[2018-04-28] MEDS: FLUCONAZOLE 100 MG TAB PO (08:44)
[2018-04-28] MEDS: ARTIFICIAL TEARS 15 ML OPH BOTH EYES ×4 (08:44→21:04)
[2018-04-28] MEDS: LEVETIRACETAM 1500 MG (PMX) 100 ML IVPB ×2 (08:44→20:37)
[2018-04-28] MEDS: OCULAR LUBRICANT 3.5 GM OPH OINT BOTH EYES ×4 (08:44→21:05)
[2018-04-28] MEDS: ASPIRIN 81 MG TAB PO (08:44)
[2018-04-28] MEDS: DOXYCYCLINE 100 MG in SOD CHLORIDE 0.9% 250 ML IVPB (09:00)
[2018-04-28] MEDS: CEFEPIME 1GM/50 ML (PMX) 50 ML IVPB ×2 (09:14→20:37)
[2018-04-28 10:33] LABS: AADO2 Arterial 602.2 mmHg (7.0-24.0); Allen Test ACCEPTAB; Arterial Base Excess -0.1 mmol/L (-3.0-3); Arterial Blood Gas Oxygen Sat 91.9 mmHG (95.0-100.0); Arterial COHb 0.3 % (0.0-3.0); Arterial Fraction of Oxyhgb 91.6 % (93.0-99.0); Arterial HCO3 25.9 mmol/L (22.0-26.0); Arterial MetHb 0 % (0.0-1.5); Arterial Total Hemglobin 10.5 g/dl (12.0-18.0); Arterial pCO2 48.4 mmhg (35-45); MODE VENT - AC; Site Right Radial
[2018-04-28] MEDS: INSULIN GLARGINE [LANtus] 3 ML PEN SC (13:28)
[2018-04-28] MEDS ORDERED: VANCOMYCIN IV PER PHARMACY XX (14:00)
[2018-04-28] MEDS: LORAZEPAM 2 MG INJ IV (15:23)
[2018-04-28] MEDS: VANCOMYCIN 2 GM in SOD CHLORIDE 0.9% 500 ML IVPB (16:01)
[2018-04-28] MEDS: FUROSEMIDE 40 MG INJ IV ×2 (17:04→21:04)
[2018-04-28] MEDS ORDERED: FUROSEMIDE 20 MG INJ IV (18:00)
[2018-04-28 19:01] LABS: AADO2 Arterial 601.8 mmHg (7.0-24.0); Allen Test ACCEPTAB; Arterial Base Excess 0.5 mmol/L (-3.0-3); Arterial Blood Gas Oxygen Sat 87.3 mmHG (95.0-100.0); Arterial COHb 0.3 % (0.0-3.0); Arterial Fraction of Oxyhgb 86.9 % (93.0-99.0); Arterial HCO3 27.3 mmol/L (22.0-26.0); Arterial MetHb 0.2 % (0.0-1.5); Arterial Total Hemglobin 10.2 g/dl (12.0-18.0); Arterial pCO2 54.9 mmhg (35-45); MODE VENT - AC; Site Right Radial
[2018-04-28] MEDS: ALBUTEROL HFA 8 GM INHALER INH (19:31)
[2018-04-28] MEDS: INSULIN ASPART [NOVOLOG] 3 ML PEN SC (22:04)
[2018-04-29] MEDS: MIDAZOLAM (DRIP) 50 mg/50 mL 50 ML IV ×3 (00:18→12:38)
[2018-04-29] MEDS: INSULIN ASPART [NOVOLOG] 3 ML PEN SC ×6 (01:07→20:55)
[2018-04-29] MEDS: PROPOFOL 100 ML IV ×5 (01:57→23:41)
[2018-04-29] MEDS: PANTOPRAZOLE 40 MG INJ IV (05:42)
[2018-04-29] MEDS: FUROSEMIDE 40 MG INJ IV ×2 (05:43→17:36)
[2018-04-29] MEDS: PHENYTOIN 100 MG INJ IV ×3 (05:43→22:09)
[2018-04-29 05:47] LABS: ADD MAN DIFF? NO
[2018-04-29 05:49] LABS: BASOPHIL # 0.1 10^3/ul (0.0-0.1); BASOPHILS % 0.3 % (0.0-2.0); EOSINOPHILS # 0.2 10^3/ul (0.0-0.5); HEMATOCRIT 31.2 % (42.0-52.0); HEMOGLOBIN 9.4 g/dl (14.0-18.0); LYMPHOCYTES # 0.8 10^3/ul (0.8-2.9); LYMPHOCYTES % 5.2 % (15.0-51.0); MEAN CORPUSCULAR HEMOGLOBIN 28.4 pg (29.0-33.0); MEAN CORPUSCULAR HGB CONC 30.1 g/dl (32.0-37.0); MEAN CORPUSCULAR VOLUME 94.3 fl (82.0-101.0); MEAN PLATELET VOLUME 10.8 fl (7.4-10.4); MONOCYTE # 1.4 10^3/ul (0.3-0.9); MONOCYTES % 8.8 % (0.0-11.0); NEUTROPHIL # 13.2 10^3/ul (1.6-7.5); NEUTROPHILS % 83.3 % (39.0-77.0); PLATELET COUNT 155 10^3/UL (140-415); RED BLOOD COUNT 3.31 10^6/ul (4.70-6.10); RED CELL DISTRIBUTION WIDTH 15.3 % (11.5-14.5)
[2018-04-29 05:49] LABS: WHITE BLOOD COUNT 15.8 10^3/ul (4.8-10.8)
[2018-04-29 06:13] LABS: ANION GAP 10 (8-16); BLOOD UREA NITROGEN 70 mg/dl (7-20); CALCIUM 8.1 mg/dl (8.4-10.2); CARBON DIOXIDE 28 mmol/L (21-31); CHLORIDE 108 mmol/L (97-110); CREATININE 1.52 mg/dl (0.61-1.24); GLUCOSE 183 mg/dl (70-220); MAGNESIUM 2.7 mg/dl (1.7-2.5); PHOSPHORUS 5.1 mg/dl (2.5-4.9); SODIUM 141 mmol/L (135-144)
[2018-04-29] MEDS: LORAZEPAM 2 MG INJ IV ×5 (07:48→23:42)
[2018-04-29 08:40] LABS: AADO2 Arterial 572.9 mmHg (7.0-24.0); Allen Test ACCEPTAB; Arterial Base Excess 1.5 mmol/L (-3.0-3); Arterial Blood Gas Oxygen Sat 94.2 mmHG (95.0-100.0); Arterial COHb 0.3 % (0.0-3.0); Arterial Fraction of Oxyhgb 93.7 % (93.0-99.0); Arterial HCO3 29.6 mmol/L (22.0-26.0); Arterial MetHb 0.2 % (0.0-1.5); Arterial Total Hemglobin 12.3 g/dl (12.0-18.0); Arterial pCO2 64.5 mmhg (35-45); MODE VENT - AC; Site Right Radial
[2018-04-29] MEDS: LEVETIRACETAM 1500 MG (PMX) 100 ML IVPB ×2 (08:46→20:30)
[2018-04-29] MEDS: FLUCONAZOLE 100 MG TAB PO (08:46)
[2018-04-29] MEDS: ASPIRIN 81 MG TAB PO (08:46)
[2018-04-29] MEDS: CEFEPIME 1GM/50 ML (PMX) 50 ML IVPB ×2 (08:47→21:15)
[2018-04-29] MEDS ORDERED: DIVALPROEX (EC) 250 MG TAB PO (09:00)
[2018-04-29] MEDS: OCULAR LUBRICANT 3.5 GM OPH OINT BOTH EYES ×4 (09:16→21:18)
[2018-04-29] MEDS: ARTIFICIAL TEARS 15 ML OPH BOTH EYES ×4 (09:16→21:16)
[2018-04-29] MEDS: INSULIN GLARGINE [LANtus] 3 ML PEN SC (09:20)
[2018-04-29] MEDS: METHYLPREDNISOLONE 40 MG INJ IV ×3 (09:41→22:16)
[2018-04-29] MEDS: METOLAZONE 5 MG TAB PO (09:41)
[2018-04-29] MEDS: VANCOMYCIN 1 GM 250 ML IVPB (09:41)
[2018-04-29] MEDS: VALPROIC ACID LIQUID CUP 250 MG/5 ML CUP GTB ×3 (11:32→21:03)
[2018-04-29] MEDS ORDERED: NORepinephrine 8MG/250 ML (PMX 250 ML (15:02)
[2018-04-29] MEDS: NORepinephrine 8MG/250 ML (PMX 250 ML IV (16:05)
[2018-04-29] MEDS: MIDAZOLAM 1 MG/ML 2 ML INJ IV (23:53)
[2018-04-30] MEDS: INSULIN ASPART [NOVOLOG] 3 ML PEN SC ×6 (01:13→21:36)
[2018-04-30] MEDS: PROPOFOL 100 ML IV ×5 (02:52→23:59)
[2018-04-30] MEDS: MIDAZOLAM (DRIP) 50 mg/50 mL 50 ML IV ×4 (04:14→20:47)
[2018-04-30 05:13] LABS: ADD MAN DIFF? NO
[2018-04-30 05:14] LABS: BASOPHIL # 0.1 10^3/ul (0.0-0.1); BASOPHILS % 0.4 % (0.0-2.0); EOSINOPHILS % 0.1 % (0.0-7.0); HEMATOCRIT 29.7 % (42.0-52.0); HEMOGLOBIN 8.9 g/dl (14.0-18.0); LYMPHOCYTES # 1.3 10^3/ul (0.8-2.9); LYMPHOCYTES % 5.6 % (15.0-51.0); MEAN CORPUSCULAR HEMOGLOBIN 28.4 pg (29.0-33.0); MEAN CORPUSCULAR VOLUME 94.9 fl (82.0-101.0); MEAN PLATELET VOLUME 10.6 fl (7.4-10.4); MONOCYTE # 1.2 10^3/ul (0.3-0.9); MONOCYTES % 5.3 % (0.0-11.0); NEUTROPHIL # 19.9 10^3/ul (1.6-7.5); NEUTROPHILS % 86.8 % (39.0-77.0); NUCLEATED RED BLOOD CELLS% 0.2 /100WBC (0.0-0.0); PLATELET COUNT 227 10^3/UL (140-415); RED BLOOD COUNT 3.13 10^6/ul (4.70-6.10); RED CELL DISTRIBUTION WIDTH 15.4 % (11.5-14.5)
[2018-04-30 05:14] LABS: WHITE BLOOD COUNT 22.8 10^3/ul (4.8-10.8)
[2018-04-30 05:49] LABS: ANION GAP 14 (8-16); BLOOD UREA NITROGEN 100 mg/dl (7-20); CALCIUM 8.1 mg/dl (8.4-10.2); CARBON DIOXIDE 26 mmol/L (21-31); CHLORIDE 106 mmol/L (97-110); CREATININE 2.69 mg/dl (0.61-1.24); GLUCOSE 212 mg/dl (70-220); MAGNESIUM 2.9 mg/dl (1.7-2.5); PHOSPHORUS 6.5 mg/dl (2.5-4.9); POTASSIUM 5.8 mmol/L (3.5-5.1); SODIUM 140 mmol/L (135-144)
[2018-04-30] MEDS: FUROSEMIDE 40 MG INJ IV (06:23)
[2018-04-30] MEDS: PANTOPRAZOLE 40 MG INJ IV (06:23)
[2018-04-30] MEDS: METHYLPREDNISOLONE 40 MG INJ IV ×3 (06:24→21:17)
[2018-04-30] MEDS: PHENYTOIN 100 MG INJ IV ×3 (06:26→21:17)
[2018-04-30] MEDS: LORAZEPAM 2 MG INJ IV ×3 (08:00→20:50)
[2018-04-30] MEDS: ALBUMIN HUMAN 25% 100 ML IV ×3 (08:01→23:10)
[2018-04-30] MEDS: NA POLYST SULFON 15 GM/60 ML BTL PO ×3 (08:03→21:16)
[2018-04-30] MEDS: INSULIN GLARGINE [LANtus] 3 ML PEN SC (08:21)
[2018-04-30] MEDS: FLUCONAZOLE 100 MG TAB PO (09:24)
[2018-04-30] MEDS: OCULAR LUBRICANT 3.5 GM OPH OINT BOTH EYES ×3 (09:24→16:33)
[2018-04-30] MEDS: ARTIFICIAL TEARS 15 ML OPH BOTH EYES ×3 (09:24→16:33)
[2018-04-30] MEDS: VALPROIC ACID LIQUID CUP 250 MG/5 ML CUP GTB ×3 (09:24→21:17)
[2018-04-30] MEDS: ASPIRIN 81 MG TAB PO (09:24)
[2018-04-30] MEDS: LEVETIRACETAM 1500 MG (PMX) 100 ML IVPB ×2 (09:30→21:14)
[2018-04-30] MEDS ORDERED: VANCOMYCIN 1.25 GM in SOD CHLORIDE 0.9% 250 ML IVPB (10:00)
[2018-04-30 10:04] LABS: VANCOMYCIN,TROUGH 16.6 ug/ml (10.0-20.0)
[2018-04-30] MEDS ORDERED: LORAZEPAM 2 MG INJ (10:18)
[2018-04-30] MEDS: CEFEPIME 2GM/50 ML IVPB (10:23)
[2018-04-30 14:01] LABS: ANION GAP 17 (8-16); BLOOD UREA NITROGEN 112 mg/dl (7-20); CARBON DIOXIDE 26 mmol/L (21-31); CHLORIDE 104 mmol/L (97-110); GLUCOSE 162 mg/dl (70-220); SODIUM 141 mmol/L (135-144)
[2018-04-30 15:57] LABS: AADO2 Arterial 577.6 mmHg (7.0-24.0); Allen Test ACCEPTAB; Arterial Base Excess 0.9 mmol/L (-3.0-3); Arterial Blood Gas Oxygen Sat 92.8 mmHG (95.0-100.0); Arterial COHb 0.3 % (0.0-3.0); Arterial Fraction of Oxyhgb 92.3 % (93.0-99.0); Arterial HCO3 28.9 mmol/L (22.0-26.0); Arterial MetHb 0.2 % (0.0-1.5); Arterial Total Hemglobin 11.3 g/dl (12.0-18.0); Arterial pCO2 63.8 mmhg (35-45); MODE VENT - AC; Site Right Radial
[2018-04-30] MEDS ORDERED: VANCOMYCIN 1 GM 250 ML IVPB (18:00)
[2018-04-30] MEDS: LINEZOLID 600 MG/D5W (PMX) 300 ML IVPB (21:14)
[2018-05-01] MEDS: ARTIFICIAL TEARS 15 ML OPH BOTH EYES ×3 (00:17→12:35)
[2018-05-01] MEDS: OCULAR LUBRICANT 3.5 GM OPH OINT BOTH EYES ×3 (00:18→12:35)
[2018-05-01] MEDS: INSULIN ASPART [NOVOLOG] 3 ML PEN SC ×4 (00:59→12:47)
[2018-05-01] MEDS: MIDAZOLAM (DRIP) 50 mg/50 mL 50 ML IV ×2 (02:28→10:29)
[2018-05-01] MEDS: PROPOFOL 100 ML IV ×3 (03:18→10:28)
[2018-05-01] MEDS: LORAZEPAM 2 MG INJ IV ×3 (03:18→12:45)
[2018-05-01 05:29] LABS: ADD MAN DIFF? NO
[2018-05-01 05:32] LABS: WHITE BLOOD COUNT 19.8 10^3/ul (4.8-10.8)
[2018-05-01 05:32] LABS: BASOPHILS % 0.2 % (0.0-2.0); EOSINOPHILS % 0.1 % (0.0-7.0); HEMATOCRIT 25.6 % (42.0-52.0); HEMOGLOBIN 7.6 g/dl (14.0-18.0); LYMPHOCYTES % 5.2 % (15.0-51.0); MEAN CORPUSCULAR HEMOGLOBIN 28.3 pg (29.0-33.0); MEAN CORPUSCULAR HGB CONC 29.7 g/dl (32.0-37.0); MEAN CORPUSCULAR VOLUME 95.2 fl (82.0-101.0); MEAN PLATELET VOLUME 10.7 fl (7.4-10.4); MONOCYTE # 1.2 10^3/ul (0.3-0.9); NEUTROPHIL # 17.3 10^3/ul (1.6-7.5); NEUTROPHILS % 86.9 % (39.0-77.0); NUCLEATED RED BLOOD CELLS% 0.1 /100WBC (0.0-0.0); PLATELET COUNT 216 10^3/UL (140-415); RED BLOOD COUNT 2.69 10^6/ul (4.70-6.10); RED CELL DISTRIBUTION WIDTH 15.9 % (11.5-14.5)
[2018-05-01] MEDS: METHYLPREDNISOLONE 40 MG INJ IV (05:32)
[2018-05-01] MEDS: PHENYTOIN 100 MG INJ IV (05:32)
[2018-05-01] MEDS: PANTOPRAZOLE 40 MG INJ IV (05:32)
[2018-05-01 06:10] LABS: ANION GAP 21 (8-16); CALCIUM 7.9 mg/dl (8.4-10.2); CARBON DIOXIDE 25 mmol/L (21-31); CHLORIDE 102 mmol/L (97-110); CREATININE 4.05 mg/dl (0.61-1.24); GLUCOSE 243 mg/dl (70-220); MAGNESIUM 3.1 mg/dl (1.7-2.5); PHOSPHORUS 9.8 mg/dl (2.5-4.9); SODIUM 142 mmol/L (135-144)
[2018-05-01 06:26] LABS: BLOOD UREA NITROGEN 119 mg/dl (7-20)
[2018-05-01] MEDS: SEVELAMER CARBONATE 2.4 GM PKT GTB ×2 (08:49→11:30)
[2018-05-01] MEDS: VALPROIC ACID LIQUID CUP 250 MG/5 ML CUP GTB ×2 (08:50→12:37)
[2018-05-01] MEDS: ASPIRIN 81 MG TAB PO (08:50)
[2018-05-01] MEDS: LEVETIRACETAM 1500 MG (PMX) 100 ML IVPB (08:50)
[2018-05-01] MEDS: LINEZOLID 600 MG/D5W (PMX) 300 ML IVPB (08:50)
[2018-05-01] MEDS: FLUCONAZOLE 100 MG TAB PO (08:50)
[2018-05-01] MEDS: NA POLYST SULFON 15 GM/60 ML BTL PO (09:00)
[2018-05-01] MEDS: INSULIN GLARGINE [LANtus] 3 ML PEN SC (09:07)
[2018-05-01] MEDS: morphine 2 MG INJ IV (11:13)
[2018-05-01] MEDS: CEFEPIME 2GM/50 ML IVPB (11:19)
[2018-05-01] MEDS: LIDOCAINE 1% (MPF) 5 ML VIAL SC (11:21)
[2018-05-01] MEDS: morphine (DRIP) 100 MG/100 ML 100 ML IV (13:04)
== END 2018-05-01 13:14 | disposition expired | DRG 308 ==
LOC: ICU 23:10 → E/R 21:40
PROC: 5A1955Z Respiratory Ventilation, Greater than 96 Consecutive Hours (ICD-10-PCS; principal; 2018-04-21)
PROC: 0BH17EZ Insertion of Endotracheal Airway into Trachea, Via Natural or Artificial Opening (ICD-10-PCS; 2018-04-21)
PROC: 05H533Z Insertion of Infusion Device into Right Subclavian Vein, Percutaneous Approach (ICD-10-PCS; 2018-04-21)
PROC: 0BH17EZ Insertion of Endotracheal Airway into Trachea, Via Natural or Artificial Opening (ICD-10-PCS; 2018-04-22)
DX: I49.01 Ventricular fibrillation (principal); A41.9 Sepsis, unspecified organism; J69.0 Pneumonitis due to inhalation of food and vomit; I50.23 Acute on chronic systolic (congestive) heart failure; R65.21 Severe sepsis with septic shock; J96.01 Acute respiratory failure with hypoxia; J96.02 Acute respiratory failure with hypercapnia; N17.0 Acute kidney failure with tubular necrosis; G92 Toxic encephalopathy; Z99.11 Dependence on respirator [ventilator] status; G93.1 Anoxic brain damage, not elsewhere classified; E87.3 Alkalosis; E87.0 Hyperosmolality and hypernatremia; I46.8 Cardiac arrest due to other underlying condition; I42.9 Cardiomyopathy, unspecified; E11.65 Type 2 diabetes mellitus with hyperglycemia; E78.5 Hyperlipidemia, unspecified; E87.6 Hypokalemia; E66.9 Obesity, unspecified; E87.5 Hyperkalemia; E83.41 Hypermagnesemia; D64.9 Anemia, unspecified; G40.901 Epilepsy, unspecified, not intractable, with status epilepticus; I11.0 Hypertensive heart disease with heart failure; Z66 Do not resuscitate; Z68.30 Body mass index [BMI] 30.0-30.9, adult
CPT/HCPCS: 31500; 36415; 36600; 70450; 71045; 71275; 76604; 80048; 80053; 80061; 80185; 80202; 81001; 81003; 82043; 82150; 82550; 82553; 82803; 82962; 83036; 83605; 83690; 83735; 83880; 84100; 84155; 84300; 84484; 85025; 85378; 85384; 85610; 85730; 87040; 87070; 87081; 87086; 89220; 93005; 93306; 94002; 94003; 94640; 94770; 95819; 96365; 96366; 96375; 96376; 99291-25; J1250